=== PATIENT | female | born 1950 | race Caucasian/White ===

== ENCOUNTER → 2019-10-04 | Outpatient (CLI) | payer MEDICARE ==
[~2019-10-04] MED LIST: AMLO5TAB10 PO; ASPI-630 PO; CALC-31 PO; CETI10TA30 PO; DICL100G18 TP; FEMARA2.5 MG PO; LOSA1TAB25 PO; METF500T16 PO; MULT1CAP15 PO; SIMV10TA15 PO
--- NOTE | 2019-10-05 02:26 | PAIN ---
DATE OF SERVICE: 10/04/2019 INITIAL CONSULTATION FOR PAIN CLINIC CHIEF COMPLAINT: Headache, left sided. HISTORY OF PRESENT ILLNESS: This is a 69-year-old female who presents with history of pain with headaches for about 1 month now. The patient reports the pain started in mid August in the base of the left skull radiating to the posterior occipital region left side, left parietal region as well as into the ear and the amish region on the left side, but not into the frontal distribution. The patient also reports some pain in the angle of the jaw on the left side. The patient was placed on gabapentin by her primary care physician 200 mg at bedtime and reports after about a week this pain has decreased significantly. The patient reports the pain has been very well controlled with about 80% improvement after taking the gabapentin. She reports she has taken it for about a month and has been off of it now for about 2 days, the pain has not returned. The patient reports it is still very well controlled. Initially, it was awakening her from sleep all night long. The patient reports that pain was sharp and stabbing, intermittent in intensity with sharp lightning bolt or brain freeze type pain in the left side of the head as described. The patient has had no other therapies at this time, but the gabapentin was doing quite well. The patient also reports some pain in both of her wrists which occurred about the same time, had some Voltaren gel that she has been receiving and it has been helping with this as well. The patient reports at this point, the pain is resolving fairly significantly. She rates her disability rating from 0-10, 10 being the worst, is a 1 with family home responsibilities, 3 with recreation and sexual behavior, 4 with social activity, 2 with occupational behavior, 0 with self-care and 0 with life support activities. The patient reports no photophobia, no visual disturbances and her headaches are fairly well controlled at this time. PAST MEDICAL HISTORY: Significant for type 2 diabetes, personal history of breast cancer with chemotherapy and radiation, shortness of breath, cigarette smoking, quit 20 years ago, hypertension. PREVIOUS SURGERY: Including lumpectomy left breast, x 2 and lymph node excision left axilla as well. CURRENT MEDICATIONS: Include Femara, losartan, simvastatin, daily baby aspirin, amlodipine, calcium, diclofenac cream for the wrist, metformin, multivitamins and calcium. ALLERGIES: The patient has no known drug allergies. FAMILY HISTORY: Significant for cancers and heart diseases. SOCIAL HISTORY: The patient drinks about 1 glass of wine a week, does not smoke. Denies any illegal, illicit or recreational drugs. She is , lives with her spouse, lives locally in [place], [place]. Reports she is currently retired. REVIEW OF SYSTEMS: The patient's review of systems is positive for those items mentioned in history of present illness. All systems reviewed and otherwise negative. It is complete, full and well documented on the patient's chart. PHYSICAL EXAMINATION: VITAL SIGNS: The patient's blood pressure is 156/74, pulse is 78, respirations 18, temperature 97.9 degrees Fahrenheit, height is 5 feet 2 inches, weight is 163 pounds. GENERAL: The patient is awake, alert, oriented, appropriate, very pleasant demeanor. The patient is accompanied by her . HEENT: Shows normocephalic, atraumatic. Extraocular movements are intact and symmetrical. Oral cavity shows mucous membranes moist and pink. Dentition is intact. NECK: Shows anterior throat supple without palpable lymphadenopathy noted. Swallow reflex symmetrical. CHEST: Shows normal on inspection. Breath sounds are clear bilaterally. HEART: Shows S1, S2 clear. No murmurs auscultated. ABDOMEN: Soft, nontender, nondistended. No palpable organomegaly is noted. No rebound or guarding demonstrated. BACK: Shows spine grossly in the midline. Cervical paraspinous muscle shows symmetrical on inspection with normal cervical lordotic curvature, normal thoracic kyphotic curvature and normal lumbar lordotic curvature. Cervical paraspinous muscle shows some very mild tenderness with palpation in the superior aspect of the left cervical paraspinous musculature, but not the right, very supple; however, without significant tenderness without trigger points, without atrophy or hypertrophy. The patient has good rotational motion of cervical spine, both laterally greater than 45 degrees, close to 90 degrees, right and left lateral rotation as well as full extension, full forward flexion, chin to chest without pain reported. The patient's eyes shows pupils equal, round, reactive to light. Extraocular movements are intact and once again full hinge motion of the TMJ bilaterally without disturbance or pain reported with palpation of the scalp posteriorly shows only some very mild tenderness over the mastoid process on the left, but not the right. No asymmetry is demonstrated. No difference in musculature on the occipitalis muscle as well as the temporal and parietal distribution without masses or significant tenderness with palpation throughout the scalp bilaterally. The patient's upper extremities show deep tendon reflexes 2+ in the biceps and triceps tendons. Motor exam is strong with day spa manager strength rated at 5/5 as is bicep and tricep flexion. Peripheral pulses are 2+ radial. No peripheral edema is noted. Upper extremities are warm and dry to touch, equal in color and appearance. The patient has good flexion and extension of the wrist without significant pain reported both actively and passively on exam today. The patient's skin shows warm and dry, good turgor. No edema. No sores, rashes or bruising throughout. IMPRESSION: This is a 69-year-old female with approximately 1-month history of occipital headache on the left consistent with occipital neuralgia, better with gabapentin significantly. Also wrist pain bilaterally with probable flexor extensor tendinitis, better with wrist braces and anti-inflammatories as well as topical Voltaren gel. PLAN: Options were discussed with the patient including conservative medical managements, physical therapies and interventional techniques. We will continue with gabapentin at this time. If not significantly improved, we did discuss potential for left-sided occipital nerve block. The patient will consider this if the pain returns as she is doing quite a bit better after the gabapentin and I encouraged her to maintain this at this time. The patient will return to clinic at this point on an as needed basis. NEREIDA BARRAGAN MD DR: TEAGAN/mark JOB#: [id number] / [id number] MENDEL Vazquez MD
== END | disposition home or self-care (01) ==
LOC: PNCL 13:50
PROVIDERS: ATTEND Anesthesiology
DX: M54.81 Occipital neuralgia (principal); M25.532 Pain in left wrist; M25.531 Pain in right wrist; I10 Essential (primary) hypertension; E11.9 Type 2 diabetes mellitus without complications; Z85.3 Personal history of malignant neoplasm of breast; Z87.891 Personal history of nicotine dependence; Z79.84 Long term (current) use of oral hypoglycemic drugs; Z79.82 Long term (current) use of aspirin; Z79.899 Other long term (current) drug therapy
CPT/HCPCS: G0463